=== PATIENT | female | born 1990 | race Two or more races ===

== ENCOUNTER 2019-03-05 21:59 | Emergency (ER) | payer OTHER ==
[~2019-03-05] VITALS: Ht 167.6 cm; Wt 59.0 kg
== END 2019-03-06 06:27 | disposition home or self-care (01) ==
LOC: ER 21:59
DX: B34.9 Viral infection, unspecified (principal)

== ENCOUNTER → 2019-04-20 | Outpatient (CLI) | payer OTHER | END | disposition home or self-care (01) | LOC: PRENATAL 08:18 | DX: O35.3XX1 Maternal care for (suspected) damage to fetus from viral disease in mother, fetus 1 (principal); Z3A.22 22 weeks gestation of pregnancy; Z36.3 Encounter for antenatal screening for malformations ==

== ENCOUNTER 2019-05-12 13:25 | Inpatient (IN) | payer OTHER ==
[~2019-05-12] VITALS: Ht 165.1 cm; Wt 68.0 kg
[2019-05-13] MEDS ORDERED: PRENATAL CAPLE1 EAC1 PO (08:36)
== END 2019-05-20 11:57 | disposition home or self-care (01) | DRG 833 ==
LOC: OBS/DEL 13:25 → OB/GYN 05-13 07:05 → LDR 05-13 07:05 → OB/GYN 05-14 19:13
PROVIDERS: ADMIT Obstetrics & Gynecology
PROC: BY4CZZZ Ultrasonography of Second Trimester, Single Fetus (ICD-10-PCS; principal; 2019-05-13)
PROC: BT41ZZZ Ultrasonography of Right Kidney (ICD-10-PCS; 2019-05-13)
DX: O23.02 Infections of kidney in pregnancy, second trimester (principal); Z3A.26 26 weeks gestation of pregnancy

== ENCOUNTER 2019-08-17 22:12 | Inpatient (IN) | payer OTHER ==
[~2019-08-17] VITALS: Ht 167.6 cm; Wt 73.5 kg
[~2019-08-17 22:12] MED LIST: PRENATAL CAPLE1 EAC1 PO
[2019-08-17] MEDS ORDERED: AMPICILLIN SOD500 MG PO (22:43)
== END 2019-08-20 13:45 | disposition home or self-care (01) | DRG 807 ==
LOC: LDR 22:12 → OB/GYN 22:12
PROVIDERS: ADMIT Obstetrics & Gynecology
PROC: 10E0XZZ Delivery of Products of Conception, External Approach (ICD-10-PCS; principal; 2019-08-18)
PROC: 4A1HXFZ Monitoring of Products of Conception, Cardiac Rhythm, External Approach (ICD-10-PCS; 2019-08-18)
PROC: 0HQ9XZZ Repair Perineum Skin, External Approach (ICD-10-PCS; 2019-08-18)
PROC: 3E033VJ Introduction of Other Hormone into Peripheral Vein, Percutaneous Approach (ICD-10-PCS; 2019-08-18)
DX: O99.824 Streptococcus B carrier state complicating childbirth (principal); Z37.0 Single live birth; Z3A.39 39 weeks gestation of pregnancy; O70.0 First degree perineal laceration during delivery; Z86.19 Personal history of other infectious and parasitic diseases